=== PATIENT | male | born 1955 | race Caucasian/White ===

== ENCOUNTER → 2024-03-03 | Outpatient (CLI) | payer BC | END | disposition home or self-care (01) | LOC: MRI 07:00 | DX: M17.12 Unilateral primary osteoarthritis, left knee (principal); M23.301 Other meniscus derangements, unspecified lateral meniscus, left knee; M94.262 Chondromalacia, left knee; M25.462 Effusion, left knee; Z98.890 Other specified postprocedural states | CPT/HCPCS: 73721 ==

== ENCOUNTER → 2024-10-26 | Outpatient (CLI) | payer BC ==
[~2024-10-26] MED LIST: ASPI1TAB8 PO; LISI-648 PO; SIMV-43 PO; VALA500T55 PO; [UNRECOGNIZED DRUG - CODE] PO
== END | disposition home or self-care (01) ==
LOC: RAD 08:55
PROVIDERS: ATTEND Student in an Organized Health Care Education/Training Program
DX: Z01.818 Encounter for other preprocedural examination (principal); M17.11 Unilateral primary osteoarthritis, right knee; M25.761 Osteophyte, right knee; M25.861 Other specified joint disorders, right knee; R59.0 Localized enlarged lymph nodes; M25.561 Pain in right knee
CPT/HCPCS: 71045; 73562

== ENCOUNTER 2024-11-10 11:01 | Inpatient (IN) | payer BC ==
[~2024-11-10] VITALS: Ht 177.8 cm; Wt 76.2 kg
[~2024-11-10 11:01] MED LIST changes: +SODIUM CHLORIDE 0.9% 1,000 ML IV SCH
[2024-11-10] MEDS ORDERED: VANCOMYCIN HCL 1GM VIAL ONE (12:21)
[2024-11-10] MEDS ORDERED: POLYMYXIN B SULFATE 500000 UNITS/VIAL ONE (12:21)
[2024-11-10] MEDS ORDERED: LIDOCAINE HCL/EPINEPHRINE 1%-EPI 1:100,000 20ML VIAL ONE (12:21)
[2024-11-10] MEDS ORDERED: TRANEXAMIC ACID 1000MG PREMIX 200 ML IV ONE (12:22)
[2024-11-10] MEDS ORDERED: PHENYLEPHRINE 50MG/250ML PMX 250 ML IV ONE (12:32)
[2024-11-10] MEDS ORDERED: PROPOFOL 10MG/ML 100ML 100 ML IV ONE (12:32)
[2024-11-10] MEDS ORDERED: EPINEPHRINE 1:1000 1 MG/ML AMP ONE (12:34)
[2024-11-10] MEDS ORDERED: KETOROLAC 30MG/ML VIAL ONE (12:34)
[2024-11-10] MEDS ORDERED: ROPIVACAINE HCL 1% 20 ML VIAL EPI ONE (12:34)
[2024-11-10] MEDS ORDERED: HYDROCODONE/ACETAMINOPHEN 5/325MG TABLET PO PRN ×2 (12:45→19:00)
[2024-11-10] MEDS ORDERED: HYDROMORPHONE HCL/PF 1MG/ML INJ IV PRN ×5 (12:45→15:45)
[2024-11-10] MEDS ORDERED: HYDRALAZINE 20MG/ML VIAL IV PRN ×2 (12:45→15:45)
[2024-11-10] MEDS ORDERED: ONDANSETRON HCL 4MG/2ML INJ IV PRN ×3 (12:45→15:45)
[2024-11-10] MEDS ORDERED: GLYCOPYRROLATE 0.2MG/ML VIAL 5ML IV PRN (12:45)
[2024-11-10] MEDS ORDERED: GLYCOPYRROLATE 0.2 MG/ML 2ML VIAL IV PRN (15:45)
[2024-11-10] MEDS ORDERED: NALOXONE HCL 0.4MG/ML VIAL IV PRN (16:00)
[2024-11-10 17:00] VITALS: BP 109/61; PULSE 56; RESP 19; TEMP 36.7; O2SAT 99
[2024-11-10 17:06] VITALS: BP 109/61; PULSE 56; RESP 19; TEMP 36.8
[2024-11-10 20:00] VITALS: BP 117/62; PULSE 70; RESP 19; TEMP 36.1; O2SAT 96
[2024-11-10 20:10] LABS: HEMATOCRIT 41.6 % (42.0-52.0); MEAN CORPUSCULAR HEMOGLOBIN 31.2 pg (28.0-32.0); MEAN CORPUSCULAR HGB CONC 33.6 g/dL (31.0-37.0); MEAN CORPUSCULAR VOLUME 92.8 fL (80.0-94.0); PLATELET 154 x1000/uL (130-400); RED BLOOD CELL COUNT 4.48 mill/uL (4.7-6.1); RED CELL DISTRIBUTION WIDTH 12.9 % (11.6-14.6); WHITE BLOOD COUNT 8.5 x1000/uL (4.5-11.0)
[2024-11-10 20:22] LABS: CHLORIDE 105 mEq/L (98-107); POTASSIUM 3.7 mEq/L (3.5-5.1); SODIUM 142 mEq/L (136-145)
[2024-11-10 20:23] LABS: CARBON DIOXIDE 30 mEq/L (21-32)
[2024-11-10 20:28] LABS: CREATININE 1.1 mg/dL (0.6-1.3); GLUCOSE 141 mg/dL (70-105); UREA NITROGEN BLOOD 14 mg/dL (9-23)
[2024-11-10] MEDS: CEFAZOLIN 1000MG PREMIX 50 ML IV NR (21:02)
[2024-11-11] VITALS: BP 127/70; PULSE 70; RESP 19; TEMP 36.2; O2SAT 96
[2024-11-11 04:00] VITALS: BP 138/69; PULSE 91; RESP 19; TEMP 36.3; O2SAT 96
[2024-11-11] MEDS: CEFAZOLIN 1000MG PREMIX 50 ML IV SCH (04:42)
[2024-11-11] MEDS: HYDROCODONE/ACETAMINOPHEN 5/325MG TABLET PO PRN (06:09)
[2024-11-11 08:00] VITALS: BP 132/72; PULSE 92; RESP 18; TEMP 36.7
[2024-11-11] MEDS: ASPIRIN 81MG TABLET PO SCH (08:31)
[2024-11-11] MEDS ORDERED: HYDR-4001 MT (10:03)
[2024-11-11] MEDS ORDERED: ASPI-1406 MT (10:03)
[2024-11-11] MEDS: SODIUM CHLORIDE 0.9% 1,000 ML IV SCH (10:50)
[2024-11-11] MEDS: ONDANSETRON HCL 4MG/2ML INJ IV PRN (11:34)
[2024-11-11] MEDS: HYDROMORPHONE HCL/PF 2MG/ML INJ IV PRN (11:49)
[2024-11-11 12:00] VITALS: BP 108/59; PULSE 89; RESP 20; TEMP 36.8; O2SAT 96
[2024-11-11 16:00] VITALS: BP 116/60; PULSE 89; RESP 18; TEMP 36.7; O2SAT 96
[2024-11-11 16:12] VITALS: BP 113/59; PULSE 83; TEMP 98.1; O2SAT 98
== END 2024-11-11 18:10 | disposition home or self-care (01) | DRG 470 ==
LOC: OR 11:01 → 8EST 17:20
PROVIDERS: ADMIT Student in an Organized Health Care Education/Training Program; ATTEND Student in an Organized Health Care Education/Training Program
PROC: 0SRC0JA Replacement of Right Knee Joint with Synthetic Substitute, Uncemented, Open Approach (ICD-10-PCS; principal; 2024-11-10)
DX: M17.11 Unilateral primary osteoarthritis, right knee (principal); I10 Essential (primary) hypertension; E78.00 Pure hypercholesterolemia, unspecified; Z96.643 Presence of artificial hip joint, bilateral; Z79.899 Other long term (current) drug therapy; Z91.040 Latex allergy status
CPT/HCPCS: 36415; 73560; 80048; 82962; 85027; 86850; 86900; 88305; 88311; 93970; 97116; 97162; 97166; 97530; 97535; J0690; J1171; J1885; J2004; J2371; J2405; J2704; J2795; J3370; J3490; J7030; C1776